=== PATIENT | male | born 1960 | race Caucasian/White ===

== ENCOUNTER → 2020-08-21 | Outpatient (CLI) | payer OTHER ==
[~2020-08-21] MED LIST: ASPIRIN 32325 MG/TAB PO; EFFIENT10 MG PO; LIPITOR80 MG PO; LOPRESSOR 225 MG/TAB PO; ZESTRIL2.5 MG PO
== END ==
LOC: COL.RAD 10:03
DX: K22.5 Diverticulum of esophagus, acquired (principal)

== ENCOUNTER → 2020-12-03 | Outpatient (CLI) | payer OTHER | LOC: COL.RAD 11-12 10:30 | DX: R42 Dizziness and giddiness (principal); R51.9 Headache, unspecified | CPT/HCPCS: A9585 ==